=== PATIENT | female | born 1965 ===

== ENCOUNTER 2019-04-18 16:32 | Emergency (ER) | payer MEDICAID ==
[2019-04-18 16:45] VITALS: BP 151/87; PULSE 77; RESP 18; TEMP 98.5; O2SAT 95; BMI 29.2
--- NOTE | 2019-04-18 20:38 | ED PDOC ---
Arrival/HPI - General Chief Complaint: Eye Problem Time Seen by Provider: 04/18/19 16:36 Historian: Patient - History of Present Illness Narrative History of Present Illness (Text): 04/18/19 16:37 Patient is a 53 year old female, with no significant past medical history, who presents to the emergency department complaining of redness to the left eye since one hour [facility]IN[facility]ELTS. Pt denies discharge from eye or vision changes. 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 Patient denies headache, fevers, nausea, vomiting, chest pain, shortness of breath, or any other complaints. Time/Duration: 1 hour Symptom Course: Unchanged Activities at Onset: Light Context: Home Past Medical History - Provider Review Nursing Documentation Reviewed: Yes - Infectious Disease Hx of Infectious Diseases: None - Psychiatric Hx Substance Use: No Family/Social History - Physician Review Nursing Documentation Reviewed: Yes Family/Social History: No Known Family HX Smoking Status: Never Smoked Hx Alcohol Use: No Hx Substance Use: No Allergies/Home Meds Allergies/Adverse Reactions: Allergies No Known Allergies Allergy (Verified 04/19/19 08:42) Review of Systems - Physician Review All systems were reviewed & negative as marked: Yes - Review of Systems Constitutional: absent: Fevers Eyes: Other (left eye redness; no discharge). absent: Vision Changes Respiratory: absent: SOB Cardiovascular: absent: Chest Pain Gastrointestinal: absent: Nausea, Vomiting Neurological: absent: Headache Physical Exam Vital Signs Reviewed: Yes Vital Signs Temp Pulse Resp BP Pulse Ox 04/18/19 16:44 98.5 F 77 18 151/87 H 95 Temperature: Afebrile Blood Pressure: Normal Pulse: Regular Respiratory Rate: Normal Appearance: Positive for: Well-Appearing, Non-Toxic, Comfortable Pain Distress: None Mental Status: Positive for: Alert and Oriented X 3 - Systems Exam Head: Present: Atraumatic, Normocephalic Pupils: Present: PERRL Extroacular Muscles: Present: EOMI Conjunctiva: Present: Other (small subconjunctival hemorrhage to medial aspect of left eye) Mouth: Present: Moist Mucous Membranes Neck: Present: Normal Range of Motion Respiratory/Chest: Present: Clear to Auscultation, Good Air Exchange. No: Respiratory Distress, Accessory Muscle Use, Wheezes, Rales, Rhonchi Cardiovascular: Present: Regular Rate and Rhythm, Normal S1, S2. No: Murmurs, Rub, Gallop Abdomen: Present: Normal Bowel Sounds. No: Tenderness, Distention, Peritoneal Signs, Rebound, Guarding Back: Present: Normal Inspection Upper Extremity: Present: Normal Inspection. No: Cyanosis, Edema Lower Extremity: Present: Normal Inspection. No: Edema Neurological: Present: GCS=15, CN II-XII Intact, Speech Normal Skin: Present: Warm, Dry, Normal Color. No: Rashes Psychiatric: Present: Alert, Oriented x 3, Normal Insight, Normal Concentration Medical Decision Making ED Course and Treatment: 04/18/19 16:36 Impression: Patient is a 53 year old female, with no significant past medical history, who presents to the emergency department complaining of left eye redness since 1 hour [facility]. Plan: -- Reassess and disposition Prior Visits: Notes and results from previous visits were reviewed. Progress Notes: - Scribe Statement The provider has reviewed the documentation as recorded by the Scribe Sandor Hylton All medical record entries made by the Scribe were at my direction and personally dictated by me. I have reviewed the chart and agree that the record accurately reflects my personal performance of the history, physical exam, medical decision making, and the department course for this patient. I have also personally directed, reviewed, and agree with the discharge instructions and disposition. Disposition/Present on Arrival - Present on Arrival Any Indicators Present on Arrival: No History of DVT/PE: No History of Uncontrolled Diabetes: No Urinary Catheter: No History of Decub. Ulcer: No History Surgical Site Infection Following: None - Disposition Have Diagnosis and Disposition been Completed?: Yes Diagnosis: Subconjunctival hemorrhage Disposition: HOME/ ROUTINE Disposition Time: 17:10 Condition: GOOD Discharge Instructions (ExitCare): Subconjunctival Hemorrhage Additional Instructions: ZAIRA PEACE, thank you for letting us take care of you today. The emergency medical care you received today was directed at your acute symptoms. If you were prescribed any medication, please fill it and take as directed. It may take several days for your symptoms to resolve. Return to the Emergency Department if your symptoms worsen, do not improve, or if you have any other problems. Please contact your doctor or call one of the physicians/clinics you have been referred to that are listed on the Patient Visit Information form that is included in your discharge packet. Bring any paperwork you were given at discharge with you along with any medications you are taking to your follow up visit. Our treatment cannot replace ongoing medical care by a primary care provider outside of the emergency department. Thank you for allowing the [facility] team to be part of your care today. Follow up with the eye doctor this week for re-evaluation and further management. Follow up with the clinic for outpatient medical care. Prescriptions: Polymyxin/Trimethoprim Sulfate [Polytrim Ophth Soln] 2 drop OS Q6 7 Days #1 bottle Referrals: [facility] [Outside] - Follow up with primary Bandar Hodgson MD [Staff Provider] - Follow up with primary Samara Mathias MD [Medical Doctor] - Follow up with primary Forms: [employer] ([place])
== END 2019-04-18 19:01 | disposition home or self-care (01) ==
LOC: ED 16:32 → MERGE 16:32 → ED 19:01
DX: H11.32 Conjunctival hemorrhage, left eye (principal)